=== PATIENT | male | born 1960 | race Caucasian/White ===

== ENCOUNTER 2017-04-12 11:00 | Emergency (ER) | payer BC ==
[2017-04-12 12:44] VITALS: BP 143/84
[2017-04-12] MEDS ORDERED: Tetan/Diph/Pertus SYR(Tdap)* 0.5 ML SYR(BOOSTRIX) use SYR IM ONE (12:55)
--- NOTE | 2017-04-12 12:59 | UC ---
Skin Complaint HPI - HPI Summary HPI Summary: infected left index finger x 5 days + cat bite left index finger 7 days ago , now the finger is red , swelling, tender, and drainage no fever, no chills - History of Current Complaint Chief Complaint: [facility] Time Seen by Provider: 04/12/17 12:44 Stated Complaint: CAT BITE (INFECTED) Hx Obtained From: Patient Onset/Duration: Sudden Onset, Lasting Days - 7, Still Present Timing: Constant Onset Severity: Moderate Current Severity: Moderate Location: Hand (Left) - index finger Character: Swelling, Pain, Redness, Raised, Painful Aggravating: Touch Alleviating: Nothing Associated Signs & Symptoms: Positive: Drainage, Tenderness - Allergy/Home Medications Allergies/Adverse Reactions: Allergies Allergy/AdvReac Type Severity Reaction Status Date / Time No Known Allergies Allergy Verified 04/12/17 12:43 Home Medications: Home Medications Omeprazole CAP* [Prilosec CAP* 20 MG] 20 mg PO DAILY 04/12/17 [History Confirmed 04/12/17] Review of Systems Constitutional: Negative Skin: Negative Eyes: Negative ENT: Negative Respiratory: Negative Cardiovascular: Negative Gastrointestinal: Negative Genitourinary: Negative Motor: Negative Neurovascular: Negative Musculoskeletal: Negative Neurological: Negative Psychological: Negative All Other Systems Reviewed And Are Negative: Yes PMH/Surg Hx/FS Hx/Imm Hx Previously Healthy: Yes - Surgical History Surgical History: None - Family History Known Family History: Negative: Diabetes - Social History Alcohol Use: Daily Substance Use Type: None Smoking Status (MU): Heavy Every Day Tobacco Smoker Type: Cigarettes Amount Used/How Often: 1 ppd Physical Exam Triage Information Reviewed: Yes Appearance: Well-Appearing, No Pain Distress, Well-Nourished Vital Signs: Initial Vital Signs Temp 97.7 F 04/12/17 12:37 Pulse 77 04/12/17 12:37 Resp 18 04/12/17 12:37 BP 143/84 04/12/17 12:37 Pulse Ox 97 04/12/17 12:37 Vital Signs Reviewed: Yes Eye Exam: Normal Eyes: Positive: Conjunctiva Clear ENT: Positive: Normal ENT inspection, Hearing grossly normal, Pharynx normal Neck exam: Normal Neck: Positive: Supple, Nontender, No Lymphadenopathy Respiratory: Positive: Chest non-tender, Lungs clear, Normal breath sounds, No accessory muscle use Cardiovascular Exam: Normal Cardiovascular: Positive: RRR, No Murmur, Pulses Normal Skin: Positive: Other - left index finger distal phalangs : + puncture wound , + erythema, tender, swelling, + drainage Course/Dx - Diagnoses Provider Diagnoses: infected finger. cat bite left index finger Discharge - Discharge Plan Condition: Stable Disposition: HOME Prescriptions: Amoxicillin/Clavulanate TAB* [Augmentin TAB 875*] 875 mg PO BID #20 tab Patient Education Materials: Animal Bite (ED), Wound Infection (ED) Additional Instructions: follow up in 5 days for wound check go to ED if getting worse
== END 2017-04-12 13:23 | disposition home or self-care (01) ==
LOC: UCCORT 11:00
DX: S60.471A Other superficial bite of left index finger, initial encounter (principal); L08.9 Local infection of the skin and subcutaneous tissue, unspecified; W55.01XA Bitten by cat, initial encounter; F17.210 Nicotine dependence, cigarettes, uncomplicated
CPT/HCPCS: 90715; 96372; 99201; G0463